=== PATIENT | male | born 1995 | race Caucasian/White ===

== ENCOUNTER 2018-09-04 15:47 | Emergency (ER) | payer SELFPAY ==
[~2018-09-04] VITALS: Ht 172.7 cm; Wt 90.7 kg
[2018-09-04 15:47] VITALS: BP_SYST 141
--- NOTE | 2018-09-04 15:50 | NUR ---
BROUGHT BACK TO BED #6 VIA WHEELCHAIR, PLACED IN BED AND TRIAGED. WILL ASSUME CARE.
[2018-09-04] MEDS ORDERED: KETOROLAC TROMETHAMINE 60 MG/2 ML VIAL IM ONE (16:00)
--- NOTE | 2018-09-04 16:01 | NUR ---
LJ HAZEL AT BEDSIDE FOR EVALUATION
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
--- NOTE | 2018-09-04 16:46 | NUR ---
PT MEDICATED AND WILL MONITOR
[2018-09-04 17:15] VITALS: BP_SYST 130
--- NOTE | 2018-09-04 17:15 | NUR ---
Patient given written and verbal discharge instructions and verbalizes understanding. ER MD discussed with patient the results and treatment provided. Patient in stable condition. ID arm band removed. Rx of TYLENOL, MOTRIN given. Patient educated on pain management and to follow up with PMD. Pain Scale 0/10. Opportunity for questions provided and answered. Medication side effect fact sheet provided.
== END 2018-09-04 17:15 | disposition home or self-care (01) ==
LOC: SED 15:47
DX: S13.4XXA Sprain of ligaments of cervical spine, initial encounter (principal); S39.012A Strain of muscle, fascia and tendon of lower back, initial encounter; V43.52XA Car driver injured in collision with other type car in traffic accident, initial encounter; Y93.89 Activity, other specified; Y92.410 Unspecified street and highway as the place of occurrence of the external cause; Y99.8 Other external cause status
CPT/HCPCS: 72040; 72100; 96372; 99283; J1885

== ENCOUNTER 2018-10-09 00:49 | Emergency (ER) | payer OTHER ==
[~2018-10-09] VITALS: Ht 172.7 cm; Wt 90.7 kg
[2018-10-09 00:51] VITALS: BP_SYST 158
[2018-10-09] MEDS ORDERED: HYDROcodone/ACETAMIN 5-325 MG TAB (NORCO/ VICODIN) PO ONE (01:00)
[2018-10-09] MEDS ORDERED: LIDOCAINE 1% *INHALATION* MPF 5 ML VIAL INH ONE (01:00)
[2018-10-09] MEDS ORDERED: LIDOCAINE 1% 10 MG/ML, 20 ML MDV INJ ONE (01:15)
[2018-10-09] MEDS ORDERED: MORPHINE 4 MG/ML INJ. SYRINGE IM ONE (02:15)
[2018-10-09] MEDS ORDERED: DIPH-TET-PERTUS Vaccine 0.5 ML VIAL (ADACEL) I.M. ONE (03:15)
[2018-10-09] MEDS ORDERED: BACITRACIN 1 GM OINT TP ONE ×2 (03:15→03:20)
[2018-10-09 03:16] VITALS: BP_SYST 146
== END 2018-10-09 03:16 | disposition home or self-care (01) ==
LOC: SED 00:49
DX: S61.411A Laceration without foreign body of right hand, initial encounter (principal); R03.0 Elevated blood-pressure reading, without diagnosis of hypertension; W25.XXXA Contact with sharp glass, initial encounter; Y93.89 Activity, other specified; Y92.89 Other specified places as the place of occurrence of the external cause; Y99.8 Other external cause status
CPT/HCPCS: 12002; 73130; 99283; J2001; J2270